=== PATIENT | male | born 1935 | race Caucasian/White ===

== ENCOUNTER → 2016-10-03 | Outpatient (CLI) | payer MEDICARE ==
[2016-03-07 10:10] VITALS: BP 111/58
[~2016-10-03] MED LIST: AMOXICILLIN 50500 MG PO; ASPIRIN E.C. 8181 MG PO; CARVEDILOL3.125 MG PO; CARVEDILOL6.25 MG PO; COMBIVENT RESPI1 SPR; COMBIVENT RESPI1 SPR IH; CORDARONE200 MG/TAB PO; CRESTOR 10MG10 MG PO; ELIQUIS2.5 MG PO; FISH OIL500 M1 PO; FLOMAX 0.40.4 MG/CAP PO; LISINOPRIL10 MG PO; PERCOCET 325 MG1 TA2 PO
== END ==
LOC: CARDREHAB 10:26
DX: I10 Essential (primary) hypertension (principal); R07.89 Other chest pain; I25.10 Atherosclerotic heart disease of native coronary artery without angina pectoris; F17.210 Nicotine dependence, cigarettes, uncomplicated; E78.5 Hyperlipidemia, unspecified; Z82.49 Family history of ischemic heart disease and other diseases of the circulatory system; R06.00 Dyspnea, unspecified
CPT/HCPCS: A9500

== ENCOUNTER → 2016-11-27 | Outpatient (CLI) | payer MEDICARE, BC ==
[2016-03-07 10:10] VITALS: BP 111/58
== END ==
LOC: RAD 09:53
DX: Z09 Encounter for follow-up examination after completed treatment for conditions other than malignant neoplasm (principal); R91.1 Solitary pulmonary nodule; J43.2 Centrilobular emphysema; K44.9 Diaphragmatic hernia without obstruction or gangrene
CPT/HCPCS: Q9967

== ENCOUNTER 2018-05-26 18:40 | Emergency (ER) | payer MEDICARE ==
[~2018-05-26] VITALS: Ht 182.9 cm; Wt 84.1 kg
[~2018-05-26 18:40] MED LIST changes: +FISH OIL 1000MG1 CAP PO; -FISH OIL500 M1 PO; -FLOMAX 0.40.4 MG/CAP PO; +FLOMAX0.4 MG PO; +GOOD SENSE ASPI81 M1 PO
[2018-05-26] MEDS ORDERED: COREG 3.123.125 MG/T PO (19:36)
[2018-05-26] MEDS ORDERED: AMIODARONE HCL100 MG PO (19:37)
[2018-05-26] MEDS ORDERED: CO Q-10200 MG PO (19:38)
[2018-05-26] MEDS ORDERED: BEVESPI AEROS10.7 GM IH (19:38)
[2018-05-26] MEDS ORDERED: SYNTHROID RP0.088 MG PO (19:39)
[2018-05-26] MEDS ORDERED: VITAMIN D31000 I1 PO (19:41)
[2018-05-26 19:47] LABS: PARTIAL THROMBOPLASTIN TIME 26.6 SECONDS (21.0-32.0); PROTHROMBIN TIME 11.7 SECONDS (9.0-12.0)
[2018-05-26 19:49] LABS: ALBUMIN 4.2 g/dL (3.5-5.0); CALCIUM 9.3 mg/dL (8.4-10.2); POTASSIUM 4.7 mmol/L (3.6-5.0); TOTAL BILIRUBIN 1.2 mg/dL (0.2-1.3); TOTAL PROTEIN 7.2 g/dL (6.3-8.2)
[2018-05-26 19:50] LABS: BASO # 0.1 (0.02-0.10); EOS # 0.5 (0.04-0.40); HEMATOCRIT 45.8 % (42.0-52.0); HEMOGLOBIN 15.6 g/dL (13.5-18.0); LYMPH# 1.2 (1.50-4.00); MEAN CELL VOLUME 98 fl (78-100); MEAN CORPUSCULAR HEMOGLOBIN 34 pg (27-31); MEAN CORPUSCULAR HGB CONC 34 g/dL (33-37); MEAN PLATELET VOLUME 10.4 fl (7.4-10.4); MONO # 0.7 (0.20-0.80); NEU # 3.8 (1.40-6.50); PLATELET COUNT 136 K/mm3 (130-400); RED BLOOD COUNT 4.66 M/mm3 (4.20-5.60); RED CELL DISTRIBUTION WIDTH 13.6 % (11.5-14.5); WHITE BLOOD COUNT 6.2 K/mm3 (4.8-10.8)
[2018-05-26 19:56] LABS: EOS % 7.3 % (0.0-4.0)
[2018-05-26 20:03] LABS: URINE APPEARANCE CLEAR; URINE COLOR YELLOW
[2018-05-26 20:04] LABS: PH-URINE 5.5 (5.0 - 8.0); URINE BILIRUBIN NEGATIVE (NEGATIVE); URINE BLOOD TRACE (NEGATIVE); URINE GLUCOSE NEGATIVE (NEGATIVE); URINE KETONE NEGATIVE (NEGATIVE); URINE LEUKOCYTE ESTERASE NEGATIVE (NEGATIVE); URINE NITRATE NEGATIVE (NEGATIVE); URINE PROTEIN(semi-quant) TRACE mg/dL (NEGATIVE); URINE UROBILINOGEN NORMAL (NORMAL); URINE WBC 0-1 /hpf (0-3)
[2018-05-26 21:17] VITALS: BP 168/85
== END 2018-05-26 21:17 | disposition home or self-care (01) ==
LOC: ED 18:40
PROVIDERS: Nurse Practitioner
DX: I10 Essential (primary) hypertension (principal); R25.1 Tremor, unspecified; R60.9 Edema, unspecified; Z99.81 Dependence on supplemental oxygen; Z87.891 Personal history of nicotine dependence; Z79.899 Other long term (current) drug therapy

== ENCOUNTER → 2018-08-25 | Outpatient (CLI) | payer MEDICARE ==
[~2018-08-25] MED LIST changes: +AMIODARONE HCL100 MG PO; +BEVESPI AEROS10.7 GM IH; +CO Q-10200 MG PO; +COREG 3.123.125 MG/T PO; +SYNTHROID RP0.088 MG PO; +VITAMIN D31000 I1 PO
== END ==
LOC: RAD 14:55 → LAB 15:01
PROVIDERS: Family Medicine
DX: K57.90 Diverticulosis of intestine, part unspecified, without perforation or abscess without bleeding (principal); N40.0 Benign prostatic hyperplasia without lower urinary tract symptoms; J44.9 Chronic obstructive pulmonary disease, unspecified; R10.9 Unspecified abdominal pain; Z87.891 Personal history of nicotine dependence; K44.9 Diaphragmatic hernia without obstruction or gangrene
CPT/HCPCS: Q9967

== ENCOUNTER → 2018-11-11 | Outpatient (CLI) | payer MEDICARE | LOC: RAD 09:48 | DX: I65.23 Occlusion and stenosis of bilateral carotid arteries (principal); G45.9 Transient cerebral ischemic attack, unspecified; H53.129 Transient visual loss, unspecified eye ==

== ENCOUNTER 2018-12-20 13:00 | Emergency (ER) | payer MEDICARE ==
[~2018-12-20] VITALS: Ht 182.9 cm; Wt 86.4 kg
[2018-12-20 13:49] LABS: BASO # 0.1 (0.02-0.10); EOS # 0.4 (0.04-0.40); HEMATOCRIT 44.2 % (42.0-52.0); HEMOGLOBIN 14.5 g/dL (13.5-18.0); LYMPH# 1.2 (1.50-4.00); MEAN CELL VOLUME 98 fl (78-100); MEAN CORPUSCULAR HEMOGLOBIN 32 pg (27-31); MEAN CORPUSCULAR HGB CONC 33 g/dL (33-37); MEAN PLATELET VOLUME 9.7 fl (7.4-10.4); NEU # 5.4 (1.40-6.50); PLATELET COUNT 162 K/mm3 (130-400); RED BLOOD COUNT 4.53 M/mm3 (4.20-5.60); RED CELL DISTRIBUTION WIDTH 14.3 % (11.5-14.5); WHITE BLOOD COUNT 8.1 K/mm3 (4.8-10.8)
[2018-12-20 13:50] LABS: EOS % 5.4 % (0.0-4.0)
[2018-12-20 13:58] LABS: ALBUMIN 3.7 g/dL (3.4-4.8)
[2018-12-20 13:59] LABS: POTASSIUM 4.2 mmol/L (3.5-5.1); SODIUM 138 mmol/L (136-145)
[2018-12-20 14:01] LABS: GLUCOSE 86 mg/dL (75-110); TOTAL PROTEIN 6.8 g/dL (6.2-8.1)
[2018-12-20 14:02] LABS: CARBON DIOXIDE 24 mmol/L (23-31)
[2018-12-20 14:06] LABS: AST-SGOT 14 U/L (5-34)
[2018-12-20 14:07] LABS: ALT/SGPT 14 U/L (0-55)
[2018-12-20 14:13] LABS: TROPONIN-I < 0.03 ng/mL (<0.030)
[2018-12-20 18:08] VITALS: BP 170/94
== END 2018-12-20 18:18 | disposition home or self-care (01) ==
LOC: ED 13:00
PROVIDERS: Nurse Practitioner Primary Care
DX: I16.0 Hypertensive urgency (principal); I48.91 Unspecified atrial fibrillation; J44.9 Chronic obstructive pulmonary disease, unspecified; I10 Essential (primary) hypertension; Z90.89 Acquired absence of other organs; Z99.81 Dependence on supplemental oxygen; Z79.01 Long term (current) use of anticoagulants; Z79.82 Long term (current) use of aspirin

== ENCOUNTER → 2018-12-24 | Outpatient (CLI) | payer MEDICARE ==
[2018-12-20 18:08] VITALS: BP 170/94
== END ==
LOC: CARDREHAB 07:53 → CARDLAB 14:01
DX: I25.10 Atherosclerotic heart disease of native coronary artery without angina pectoris (principal)
CPT/HCPCS: A9500

== ENCOUNTER 2019-01-02 16:58 | Emergency (ER) | payer MEDICARE ==
[~2019-01-02] VITALS: Ht 175.3 cm; Wt 81.8 kg
[~2019-01-02 16:58] MED LIST changes: +MACROBID 100 M100 MG PO
[2019-01-02 17:37] LABS: HEMATOCRIT 47.4 % (42.0-52.0); HEMOGLOBIN 15.3 g/dL (13.5-18.0); MEAN CELL VOLUME 100 fl (78-100); MEAN CORPUSCULAR HEMOGLOBIN 32 pg (27-31); MEAN CORPUSCULAR HGB CONC 32 g/dL (33-37); MEAN PLATELET VOLUME 9.9 fl (7.4-10.4); PLATELET COUNT 137 K/mm3 (130-400); RED BLOOD COUNT 4.75 M/mm3 (4.20-5.60); RED CELL DISTRIBUTION WIDTH 14.3 % (11.5-14.5)
[2019-01-02 17:43] LABS: LYMPHOCYTE 10 % (20-51); MONOCYTE 1 % (3-10); NEUTROPHILS 88 % (42-75)
[2019-01-02 17:46] LABS: ALBUMIN 3.9 g/dL (3.4-4.8)
[2019-01-02 17:47] LABS: POTASSIUM 4.5 mmol/L (3.5-5.1)
[2019-01-02 17:48] LABS: CALCIUM 9.4 mg/dL (8.3-10.5)
[2019-01-02 17:49] LABS: TOTAL PROTEIN 7.2 g/dL (6.2-8.1)
[2019-01-02 17:51] LABS: TOTAL BILIRUBIN 0.9 mg/dL (0.2-1.2)
[2019-01-02 20:14] LABS: URINE APPEARANCE CLEAR; URINE BILIRUBIN NEGATIVE (NEGATIVE); URINE COLOR YELLOW; URINE GLUCOSE NEGATIVE (NEGATIVE); URINE KETONE 1+ (NEGATIVE); URINE PROTEIN(semi-quant) TRACE mg/dL (NEGATIVE)
[2019-01-02 20:15] LABS: URINE BLOOD 50 ery/uL (NEGATIVE); URINE LEUKOCYTE ESTERASE NEGATIVE (NEGATIVE); URINE MUCUS PRESENT (NOT PRESENT); URINE NITRATE NEGATIVE (NEGATIVE); URINE UROBILINOGEN NORMAL (NORMAL)
[2019-01-02 20:40] VITALS: BP 118/61
== END 2019-01-02 20:40 | disposition home or self-care (01) ==
LOC: ED 16:58
PROVIDERS: Family Medicine
DX: N39.0 Urinary tract infection, site not specified (principal); I48.91 Unspecified atrial fibrillation; J44.9 Chronic obstructive pulmonary disease, unspecified; I10 Essential (primary) hypertension; Z79.01 Long term (current) use of anticoagulants; Z98.890 Other specified postprocedural states; Z79.82 Long term (current) use of aspirin

== ENCOUNTER 2024-02-12 14:06 | Inpatient (IN) | payer MEDICARE ==
[~2024-02-12] VITALS: Ht 182.9 cm; Wt 72.5 kg
[~2024-02-12 14:06] MED LIST changes: +CEFDINIR300 MG PO; +LEVOFLOXACIN250 MG PO; +PREDNISONE20 M1 PO
[2024-02-12 17:00] VITALS: BP 132/68
--- NOTE | 2024-02-12 17:30 | NUR ---
Pt arrives to [facility] via POV. Escorted to room via WC. Is alert, Ox4, denies pain. Apply telemetry, SR 70's. Lac to L frontal head, closed, no drainage. Pt reports pain with touch. Reports intermittent dizziness upon standing. Pt and son report this has been increasing in frequency and may be what led to recent falls. Placed on 2L O2 via NC. Reports this is his baseline and wears 3L at [facility] for sleep. Pt given general diet upon arrival. Eats 100%. Scattered bruising to include L ankle and sternum. Pt reports that he has not had BM x 1 week. Report from JOSHUA Jean at [facility] that pt had BM on 02/08. BS x 4, passing gas. Pt able to stand/ambulate with 1A/walker. States that he does not use assistive device at home. LLE midshin down to foot slight non-pitting edema with purple discoloration. Pt has cell phone, bilat hearing aids, upper/lower dentures and glasses at bedside. Pt oriented to room, call light and alarms. Pt sitting up in recliner, call light within reach, chair brake and alarm set.
[2024-02-12] MEDS ORDERED: Polyethylene Glycol 3350 Powder 17 GM PACKET PO PRN (18:00)
[2024-02-12] MEDS ORDERED: Docusate Sodium 100 MG CAP PO PRN (18:00)
[2024-02-12] MEDS ORDERED: Heparin 5,000 UNITS/ML 1 ML VIAL SQ SCH (18:00)
[2024-02-12] MEDS ORDERED: Bisacodyl 5 MG TAB PO PRN (18:00)
[2024-02-12] MEDS ORDERED: Acetaminophen 325 MG TAB PO PRN (18:00)
[2024-02-12 18:21] VITALS: BP 132/68
[2024-02-12] MEDS ORDERED: FUROSEMIDE40 MG PO (18:22)
[2024-02-12] MEDS ORDERED: LEVOTHYROXINE0.05 MG PO (18:24)
[2024-02-12] MEDS ORDERED: CLARITIN10 M1 PO (18:27)
[2024-02-12] MEDS ORDERED: NASONEX 24HR AL17 ML NS (18:28)
[2024-02-12] MEDS ORDERED: CALCIUM ANTACI500 MG PO (18:36)
[2024-02-12] MEDS ORDERED: KEPPRA 500MG500 MG PO (18:38)
[2024-02-12] MEDS ORDERED: [UNRECOGNIZED DRUG - OTHER] TP (18:40)
[2024-02-12] MEDS ORDERED: MECLIZINE PO (18:41)
[2024-02-12] MEDS ORDERED: ROXICODONE 55 MG/TAB PO (18:43)
[2024-02-12] MEDS ORDERED: POLYETHYLE17 GM/Dose PO (18:44)
[2024-02-12] MEDS ORDERED: SENNA DOCUSATE1 TAB PO (18:45)
[2024-02-12] MEDS ORDERED: PROTONIX TR40 M1 PO (18:45)
[2024-02-12] MEDS ORDERED: Meclizine 12.5 MG TAB PO PRN (19:00)
[2024-02-12] MEDS ORDERED: oxyCODONE 5 MG TAB PO PRN (19:00)
[2024-02-12] MEDS ORDERED: Calcium Carbonate Chewable 500 MG TAB PO PRN (19:00)
[2024-02-12] MEDS ORDERED: Albuterol 90 MCG/PUFF MDI IH PRN (19:15)
[2024-02-12 20:41] LABS: BASO # 0.03 K/mm3 (0.02-0.10); EOS # 0.18 K/mm3 (0.04-0.40); EOS % 2.8 % (0.0-4.0); HEMATOCRIT 25.6 % (42.0-52.0); HEMOGLOBIN 8.2 g/dL (13.5-18.0); LYMPH# 0.99 K/mm3 (1.50-4.00); MEAN CELL VOLUME 96 fl (78-100); MEAN CORPUSCULAR HEMOGLOBIN 31 pg (27-31); MEAN CORPUSCULAR HGB CONC 32 g/dL (33-37); MEAN PLATELET VOLUME 8.7 fl (7.4-10.4); MONO # 0.48 K/mm3 (0.20-0.80); NEU # 4.79 K/mm3 (1.40-6.50); PLATELET COUNT 155 K/mm3 (130-400); RED BLOOD COUNT 2.68 M/mm3 (4.20-5.60); RED CELL DISTRIBUTION WIDTH 17.9 % (11.5-14.5); WHITE BLOOD COUNT 6.5 K/mm3 (4.8-10.8)
[2024-02-12 20:51] LABS: CALCIUM 8.4 mg/dL (8.3-10.5)
[2024-02-12 20:52] LABS: TOTAL PROTEIN 2.5 g/dL (6.2-8.1)
[2024-02-12] MEDS ORDERED: Sennosides/Docusate 8.6-50 MG TAB PO SCH (21:00)
[2024-02-12] MEDS ORDERED: Formoterol Neb Soln 20 MCG/2 ML UD IH SCH (21:00)
[2024-02-12] MEDS ORDERED: levETIRAcetam 500 MG TAB PO SCH (21:00)
[2024-02-12 21:10] LABS: ALBUMIN 3.1 g/dL (3.4-4.8)
[2024-02-12 21:15] LABS: TOTAL BILIRUBIN 0.7 mg/dL (0.2-1.2)
--- NOTE | 2024-02-12 22:04 | NUR ---
Upon entering room, pt lying in bed, watching tv. Reports that he attempted to roll onto his side earlier and became dizzy. Educate that dizziness may be new normal. Educate about meclizine, pt willing to try it. Pt denies need for bx tx, refuses at this time. Swallows pills whole, 1 at a time, without issue. SPORTS THERAPIST assists pt with HS oral hygiene, brushes dentures and place in cup. Pt denies any further needs. O2 at 2L via NC. Bed low/locked, bed alarm on, call light in reach.
--- NOTE | 2024-02-12 23:00 | NUR ---
Report received from Sharon LEWIS. Patient rests supine in bed. Oxygen in place at 2L/NC. Snoring. No signs of pain/distress. Bed alarm on. Call light in reach.
[2024-02-12 23:33] LABS: PH-URINE 5.5 (5.0 - 8.0); URINE APPEARANCE CLEAR (CLEAR); URINE BILIRUBIN NEGATIVE (NEGATIVE); URINE COLOR YELLOW (YELLOW); URINE GLUCOSE NEGATIVE (NEGATIVE); URINE KETONE TRACE (NEGATIVE); URINE PROTEIN(semi-quant) NEGATIVE (NEGATIVE)
[2024-02-12 23:34] LABS: URINE BLOOD NEGATIVE (NEGATIVE); URINE LEUKOCYTE ESTERASE NEGATIVE (NEGATIVE); URINE NITRATE NEGATIVE (NEGATIVE); URINE WBC 0-1 /hpf (0-3)
[2024-02-13 05:37] VITALS: BP 121/55
--- NOTE | 2024-02-13 07:19 | NUR ---
Report to Padmaja LEWIS.
--- NOTE | 2024-02-13 07:31 | NUR ---
Report received from Pennie Jessica, JONO and care assumed. Pt resting in bed with eyes closed and oxygen in place. No signs of distress or discomfort noted at this time. Call light in reach, bed alarm on.
[2024-02-13 07:36] LABS: HEMOGLOBIN 7.5 g/dL (13.5-18.0); MEAN PLATELET VOLUME 8.6 fl (7.4-10.4); RED BLOOD COUNT 2.44 M/mm3 (4.20-5.60); RED CELL DISTRIBUTION WIDTH 17.9 % (11.5-14.5); WHITE BLOOD COUNT 5.4 K/mm3 (4.8-10.8)
[2024-02-13] MEDS ORDERED: Fluticasone Nasal 50 MCG/Spray 16 GM BOTTLE NS SCH (09:00)
[2024-02-13] MEDS ORDERED: Loratadine 10 MG TAB PO SCH (09:00)
[2024-02-13] MEDS ORDERED: Tiotropium 2.5 MCG Respimat MDI IH SCH (09:00)
[2024-02-13] MEDS ORDERED: Omega-3 Fatty Acid Esters 1,000 MG CAP PO SCH (09:00)
[2024-02-13] MEDS ORDERED: Polyethylene Glycol 3350 Powder 17 GM PACKET PO SCH (09:00)
[2024-02-13] MEDS ORDERED: Furosemide 40 MG TAB PO SCH (09:00)
[2024-02-13] MEDS ORDERED: Lidocaine 4% Topical Patch TP SCH (09:00)
--- NOTE | 2024-02-13 10:45 | NUR ---
Pt resting in chair, denies pain. Pt alert and oriented x3, conversation appropirate. Pt educated on medications ordered, and verablizes understanding. No further needs or concerns at this time.
--- NOTE | 2024-02-13 14:09 | NUR ---
Assisted pt to bathroom. Pt had a medium BM. Stool color is dark brown-black colored. Pt assisted back to bed, call light in reach, bed alarm on.
[2024-02-13 17:14] VITALS: BP 108/56
--- NOTE | 2024-02-13 17:35 | NUR ---
Pt states intermittent dizziness when getting up from sitting or supine to standing. Pt requests to eat supper while in bed this evening BP checked and pulse in the 70s.
[2024-02-13 17:37] VITALS: BP 140/69
--- NOTE | 2024-02-13 17:41 | NUR ---
Per telemetry, pt has been in and out of a-fib throughout the day, and this nurse asked pt if he gets dizzy when not in the hospital. Pt states that he doesn't get dizzy usually. Continuing to monitor pt.
[2024-02-13 19:10] LABS: HEMATOCRIT 24.1 % (42.0-52.0); HEMOGLOBIN 7.9 g/dL (13.5-18.0)
--- NOTE | 2024-02-13 19:35 | NUR ---
Report given and care transferred. Dr. Dorman notified of pt's dizziness.
[2024-02-14 06:27] VITALS: BP 110/71
[2024-02-14 09:02] LABS: HEMATOCRIT 25.9 % (42.0-52.0); HEMOGLOBIN 8.4 g/dL (13.5-18.0); MEAN PLATELET VOLUME 8.8 fl (7.4-10.4); RED BLOOD COUNT 2.71 M/mm3 (4.20-5.60); RED CELL DISTRIBUTION WIDTH 17.6 % (11.5-14.5); WHITE BLOOD COUNT 5.6 K/mm3 (4.8-10.8)
--- NOTE | 2024-02-14 09:34 | NUR ---
PT IS SITTING IN HIS RECLINER EATING BREAKFAST. RN ADMINISTERED MEDICATIONS. PT IS ON 2 LPM VIA NC. PTS HGB IS 8.4 NO CHANGE SINCE YESTERDAY. PT DENIES PAIN, OR DISCOMFORT.
[2024-02-14 17:04] VITALS: BP 124/55
--- NOTE | 2024-02-14 20:20 | NUR ---
Report received from Debi LEWIS. Patient resting supine in bed watching TV. Family just left for the night. A/O x4. [place] with hearing aides. Denies pain. States does get SOA with sudden movements and still having dizziness. Lungs CTA. TELE in place. NSR rate 60's. Assessment completed. Voiding clear yellow urine in urinal at bedside. HS medications taken whole without difficulty. Denies wants or needs. Bed alarm on. Call light in reach.
--- NOTE | 2024-02-15 05:09 | NUR ---
Awakened for AM medications, and vitals. Resting well. Denies pain. Heparin injection and po medications taken without difficulty.
[2024-02-15 05:33] VITALS: BP 107/62
--- NOTE | 2024-02-15 06:59 | NUR ---
Report to Wave RN
[2024-02-15 09:19] LABS: HEMATOCRIT 25.2 % (42.0-52.0); HEMOGLOBIN 8.1 g/dL (13.5-18.0); MEAN PLATELET VOLUME 9.2 fl (7.4-10.4); RED BLOOD COUNT 2.61 M/mm3 (4.20-5.60); RED CELL DISTRIBUTION WIDTH 17.5 % (11.5-14.5); WHITE BLOOD COUNT 5.8 K/mm3 (4.8-10.8)
--- NOTE | 2024-02-15 09:30 | NUR ---
THIS NURSE ADMINISTERED MEDICATION. PT REPORTED DIZZINESS. RN ADMINISTERED ANTIVERT. PT IS SITTING UP IN THE RECLINER. CALLLIGHT WITHIN REACH, PT DENIES ANY FURTHER NEEDS.
[2024-02-15 17:26] VITALS: BP 127/56
[2024-02-16 05:38] VITALS: BP 100/51
--- NOTE | 2024-02-16 09:58 | NUR ---
SPEECH THERAPY AT BEDSIDE WITH PT AT THIS TIME. CHANGED THE BATTERY ON PTS TELEMOMITOR.
[2024-02-16 17:12] VITALS: BP 108/58
--- NOTE | 2024-02-16 17:56 | NUR ---
URINATED 275 MLS IN URINAL. STRAW COLORED URINE.
--- NOTE | 2024-02-16 21:17 | NUR ---
pt alert and oriented x4, pt now resting in bed watching tv. pt denies any pain at this time. pt assessed and medications delivered without complications pt denies any furhter neeeds. pt now resting in bed with call light in reach.
[2024-02-17 05:40] VITALS: BP 100/51
[2024-02-17 06:16] LABS: BASO # 0.04 K/mm3 (0.02-0.10); EOS % 7.4 % (0.0-4.0); HEMATOCRIT 23.4 % (42.0-52.0); HEMOGLOBIN 7.4 g/dL (13.5-18.0); LYMPH# 1.25 K/mm3 (1.50-4.00); MEAN CELL VOLUME 97 fl (78-100); MEAN CORPUSCULAR HEMOGLOBIN 31 pg (27-31); MEAN CORPUSCULAR HGB CONC 32 g/dL (33-37); MEAN PLATELET VOLUME 8.8 fl (7.4-10.4); MONO # 0.57 K/mm3 (0.20-0.80); NEU # 3.11 K/mm3 (1.40-6.50); PLATELET COUNT 157 K/mm3 (130-400); RED BLOOD COUNT 2.42 M/mm3 (4.20-5.60); RED CELL DISTRIBUTION WIDTH 16.9 % (11.5-14.5); WHITE BLOOD COUNT 5.4 K/mm3 (4.8-10.8)
[2024-02-17 17:19] VITALS: BP 108/62
--- NOTE | 2024-02-17 18:54 | NUR ---
Shift summary: Pt Ox4, VSS, denies pain. Reports intermittent dizziness with orthostatic changes, subsides quickly. Hgb 7.4g/dL, provider aware. Pt applied own compression socks, knee high. Pt had lg loose dark brown stool. No kamilla blood noted.
--- NOTE | 2024-02-17 19:23 | NUR ---
report recieved fromsanna martin rn
--- NOTE | 2024-02-17 20:35 | NUR ---
pt alert and oriented x4, pt assisted to bed by bruce miller and this nurse to bed . pt denies any pain at this time, pt had many family members at bedside during shift exchange. pt now resting in bed, assessment performed. pt denies any furhter needs a this time.
[2024-02-18 05:00] VITALS: BP 91/50
[2024-02-18 06:36] LABS: HEMATOCRIT 24.1 % (42.0-52.0); HEMOGLOBIN 7.6 g/dL (13.5-18.0)
--- NOTE | 2024-02-18 06:54 | NUR ---
report to adolfo miller
--- NOTE | 2024-02-18 08:15 | NUR ---
PT UP IN CHAIR EATING BREAKFAST. PATCH APPLIED TO RIGHT UPPER ARM. 2L VIA NC. ASSESMENT COMPLETE. MEDICATION TAKEN PO WITHOUT DIFFICULTY. NO OTHER WANTS/NEEDS AT THIS TIME. CALL LIGHT WITHIN REACH, CHAIR ALARM ON.
[2024-02-18 17:55] VITALS: BP 105/62
--- NOTE | 2024-02-18 18:53 | NUR ---
report received from adolfo miller
--- NOTE | 2024-02-18 21:03 | NUR ---
PT ALERT AND ORIENTED X4, PT RESTING IN BED AT THIS TIME AND REPORTS NO PAIN. PT ASSESSED AND MEDICATIONS DELIVERED WITHOUT COMPLICATION. PT AGREEABLE TO BREATHING TREATMENT. PT NOW RESTING IN BED WITH CALL LIGHT IN REACH. PT DENIES ANY FURTHER NEEDS AT THIS TIME
[2024-02-19 06:00] VITALS: BP 103/61
[2024-02-19 09:14] LABS: HEMATOCRIT 26.6 % (42.0-52.0); HEMOGLOBIN 8.3 g/dL (13.5-18.0)
--- NOTE | 2024-02-19 09:30 | NUR ---
Pt sitting up in recliner, dressed for the day. Reports pain to R shoulder, requests lidocaine patch be placed there. Declines bx tx, lungs CTA. Reports soft to loose stools, declines miralax. Reports that stools have been marsh to brown, no longer dark or black. This AM Hgb 8.3. Pt reports he still has intermittent dizziness, especially when rising from a lying down position. States that he waits until dizziness subsides then continues movement. Pt denies any further needs at this time. Chair locked, alarm set, call light in reach.
--- NOTE | 2024-02-19 17:30 | NUR ---
Report received from Sharon LEWIS. Patient resting in room, eating supper. Oxygen in place at 2L/NC. Denies wants or needs at this time.
[2024-02-19 17:43] VITALS: BP 94/55
--- NOTE | 2024-02-19 20:45 | NUR ---
Family here visiting. Watching FB game on phone. Denies wants or needs at this time.
--- NOTE | 2024-02-19 21:37 | NUR ---
Family gone. Assessment completed. HS medications and nebulizer tx taken. To BR with SBA and walker. Had medium, brown loose stool. Oral cares completed and assisted SBA back to bed. Denies pain at this time. Bed alarm on. Call light in reach.
--- NOTE | 2024-02-20 05:37 | NUR ---
Rested well all night with oxygen in place at 2L/NC. AM medication taken PO. Denies wants or needs. Using urinal in bed. Bed alarm on. Call light in reach.
[2024-02-20 06:04] VITALS: BP 120/69
--- NOTE | 2024-02-20 06:43 | NUR ---
Report to Olu LEWIS.
--- NOTE | 2024-02-20 08:00 | NUR ---
PT ALERT AND ORIENTATED AND UP IN CHAIR FOR BREAKFAST. STATED THAT HE DIDNT HAVE ANY PAIN THIS MORNING AND THAT HE SLEPT GOOD. 2L O2 VIA NC GOING. MEDICATION TAKEN PO. ASSESMENT COMPLETE. LIDOCAINE PATCH APPLIED TO RIGHT SHOULDER. NO OTHER WANTS OR NEEDS AT THIS TIME. CALL LIGHT WITHIN REACH, CHAIR ALARM ON.
[2024-02-20 12:04] LABS: HEMATOCRIT 28.5 % (42.0-52.0); HEMOGLOBIN 8.9 g/dL (13.5-18.0)
[2024-02-20 16:30] VITALS: BP 121/51
--- NOTE | 2024-02-20 19:17 | NUR ---
Report received from Olu LEWIS. Patient rests supine in bed watching TV. A/O x4. Denies pain. Oxygen in place at 2L/NC. Assessment completed. TELE in place. HR 60's. Bed alarm on. Call light in reach.
--- NOTE | 2024-02-21 05:38 | NUR ---
Rested well through the night with no complaints. HR patrick in 50's while sleeping. AM medications taken po without difficulty. Bed alarm on, call light in reach.
[2024-02-21 05:45] VITALS: BP 113/47
--- NOTE | 2024-02-21 06:48 | NUR ---
Report to Carmen LEWIS
[2024-02-21 08:49] LABS: HEMATOCRIT 26.5 % (42.0-52.0); HEMOGLOBIN 8.2 g/dL (13.5-18.0)
--- NOTE | 2024-02-21 09:59 | NUR ---
PT SITTING UP IN CHAIR, ALERT AND ORIENTED. DENIES PAIN. DOES REPORT SOME DIZZINESS UPON GETTING UP FROM BED, BUT REPORTS THIS IS IMPROVED FROM PREVIOUS. CONTINUES TO HAVE LOOSE BROWN STOOLS, MIRALAX HELD. AMBULATED IN HALLS WITH STANDBY ASSISTANCE. WAS ABLE TO WALK LAP AROUND INSIDE OF HOSPITAL. DENIES SHORTNESS OF BREATH. CONTINUES ON 2L OXYGEN.
[2024-02-21 17:41] VITALS: BP 92/48
--- NOTE | 2024-02-21 18:57 | NUR ---
REPORT GIVEN TO JOSHUA MATOS.
--- NOTE | 2024-02-21 21:00 | NUR ---
Patient resting in bed awake. Denies pain. HS meds reviewed and given. RT treatment given. O2 on 2lpnc.
[2024-02-22 05:34] VITALS: BP 116/58
[2024-02-22 17:07] VITALS: BP 107/57
--- NOTE | 2024-02-22 18:27 | NUR ---
PATIENT HAS BEEN PLEASENT AND COOPERATIVE WITH CARES. HE HAS MILD PAIN IN HIS RIGHT SHOULDER. LIDOCAINE PATCHN WAS APPLIED. PATIENT DENIED PAIN WHEN ASKED THROUGHT THE DAY. HE CONTINUES ON O2 @2LPM VIA NASAL CANNULA. HE HAS WORKED WELL WITH THERAPY. HIS FAMILY IS WANTING HIM TO BE DISCHARGED 02/24/24 BY 1100. HE IS CURRENTLY PLAYING CARES WITH FAMILY IN HIS ROOM AT THIS TIME. STAFF WILL CONT TO MONITOR.
--- NOTE | 2024-02-22 20:33 | NUR ---
PT SITTING IN REACLINER WATCHING TV. PT DENIES PAIN WHEN ASKED. NURSING ASSESSMENT PREFORMED WITH NO ABNORAML FINDING. PT IS ALSERT AND ABLE TO ANSWEWR ALL QUESTIONS APPROPRIEATLY. PT ALERT AND ORIENTED.
[2024-02-23 05:41] VITALS: BP 111/58
--- NOTE | 2024-02-23 06:53 | NUR ---
REPORTS GIVEN TO WALT LEWIS
--- NOTE | 2024-02-23 12:53 | NUR ---
APPOINTMENTS FOR FOLLOW UP ARE IN DISCHARGE REFERRALS SECTION. LOCATION FOR CT HEAD WITHOUT HAS CHANGED TO LOCATION OF [address] SAME THE FOLLOW UP PROVIDER SHELTON RICCI.
--- NOTE | 2024-02-23 15:44 | NUR ---
PATIENT IS ALERT AND ORIENTED X4. HE HAS BEEN PLEASENT AND COOPERATIVE WITH STAFF. HE HAS EATEN MOST TO ALL OF HIS MEALS, WORKED WELL WITH THERAPY AND HAS SPENT THE OTHER PORTION OF THE DAY VISITING WITH FAMILY. PATIENT IS PLANNING ON LEAVING TOMORROW WITH FAMILY. HE IS CURRENTLY SITTING IN ROOM WITH VISITORS. HE HAS DENIED PAIN THROUGHT THE DAY. HE HAS A LIDOCAINE PATCH TO THE RIGHT SHOULDER.
[2024-02-23 17:58] VITALS: BP 126/54
--- NOTE | 2024-02-23 18:55 | NUR ---
report received from gunjan miller
--- NOTE | 2024-02-23 19:47 | NUR ---
pt alert and oriented x4, pt resting in chair and is excited for discharge tomorrow morning. pt assessed without complication, pt denies any pain at this time. pt resting in chair with call light in reach, pt denies any further needs.
[2024-02-24 05:44] LABS: BASO # 0.05 K/mm3 (0.02-0.10); EOS # 0.43 K/mm3 (0.04-0.40); EOS % 8.1 % (0.0-4.0); HEMATOCRIT 23.9 % (42.0-52.0); HEMOGLOBIN 7.3 g/dL (13.5-18.0); MEAN CELL VOLUME 96 fl (78-100); MEAN CORPUSCULAR HEMOGLOBIN 29 pg (27-31); MEAN CORPUSCULAR HGB CONC 31 g/dL (33-37); MEAN PLATELET VOLUME 9.2 fl (7.4-10.4); PLATELET COUNT 175 K/mm3 (130-400); RED BLOOD COUNT 2.49 M/mm3 (4.20-5.60); RED CELL DISTRIBUTION WIDTH 16.7 % (11.5-14.5); WHITE BLOOD COUNT 5.3 K/mm3 (4.8-10.8)
[2024-02-24 05:53] LABS: ALBUMIN 3.2 g/dL (3.4-4.8)
[2024-02-24 05:54] LABS: CALCIUM 8.6 mg/dL (8.3-10.5)
[2024-02-24 05:55] LABS: TOTAL PROTEIN 5.4 g/dL (6.2-8.1)
[2024-02-24 05:57] LABS: TOTAL BILIRUBIN 0.5 mg/dL (0.2-1.2)
[2024-02-24 06:31] VITALS: BP 131/56
--- NOTE | 2024-02-24 07:19 | NUR ---
report to roshni miller
--- NOTE | 2024-02-24 09:04 | NUR ---
PT SITTING UP IN CHAIR. NO DISTRESS NOTED. PILLS TAKEN WITHOUT DIFFICULTY. PT DENIES ANY PAIN CURRENTLY. CALL LIGHT WITHIN REACH. PT NOTIFIED THAT MEGAN FISHER WILL COME AND SPEAK WITH HIM FOLLOWING SWING BED MEETING.
--- NOTE | 2024-02-24 11:30 | NUR ---
PHILLIP REPORTS THAT THE PATIENT WILL STAY OVERNIGHT AND WILL RECHECK LABS AND SEE HOW THEY COMPARE TO TODAY. STOOL SAMPLE TAKEN TO LAB PER REQUEST FOR ADDITIONAL TESTING. PT A/OX4. CALL LIGHT WITHIN REACH.
--- NOTE | 2024-02-24 14:48 | NUR ---
HGB dropping. Occult blood positive. Dirrhea starting back. No discharge planned today. [facility] notified. Family at bedside and agrees to monitor labs. Insurance Thien Cosme with [employer] notified via secure message of the change in plans.
--- NOTE | 2024-02-24 17:31 | NUR ---
PT SITTING UP IN BED EARTING ICE CREAM WHEN THIS RN WALKS IN. TAKES MED WITHOUT DIFFICULTY. DENIES ANY PAIN CURRENTLY. PT WATCHING TV, CALL LIGHT WITHIN REACH. DENIES ANY OTHER NEEDS AT THIS TIME.
[2024-02-24 17:50] VITALS: BP 132/67
--- NOTE | 2024-02-24 19:12 | NUR ---
REPORT TO JOSHUA WAY
[2024-02-24 19:42] LABS: HEMATOCRIT 26.6 % (42.0-52.0); HEMOGLOBIN 8.3 g/dL (13.5-18.0)
--- NOTE | 2024-02-24 22:57 | NUR ---
pt alert and oriented x4, pt resting in bed asleep when this nurse entered room. pt denies any pain at this time, pt assessed and medications delivered without complication. pt denies any further needs at this time. pt now resting in bed with call light in reach and bed alarm on
[2024-02-25 05:55] LABS: BASO # 0.04 K/mm3 (0.02-0.10); EOS # 0.46 K/mm3 (0.04-0.40); EOS % 8.7 % (0.0-4.0); HEMATOCRIT 24.7 % (42.0-52.0); HEMOGLOBIN 7.7 g/dL (13.5-18.0); LYMPH# 0.97 K/mm3 (1.50-4.00); MEAN CELL VOLUME 93 fl (78-100); MEAN CORPUSCULAR HEMOGLOBIN 29 pg (27-31); MEAN CORPUSCULAR HGB CONC 31 g/dL (33-37); MEAN PLATELET VOLUME 9.1 fl (7.4-10.4); MONO # 0.52 K/mm3 (0.20-0.80); PLATELET COUNT 183 K/mm3 (130-400); RED BLOOD COUNT 2.65 M/mm3 (4.20-5.60); RED CELL DISTRIBUTION WIDTH 16.3 % (11.5-14.5); WHITE BLOOD COUNT 5.3 K/mm3 (4.8-10.8)
[2024-02-25 06:04] VITALS: BP 113/61
[2024-02-25] MEDS ORDERED: PROTONIX TR40 M1 PO (09:47)
--- NOTE | 2024-02-25 11:59 | NUR ---
Prescription for Protonix called in per Morgan álvarez request to [facility].
== END 2024-02-25 11:20 | disposition home health service (06) | DRG 949 ==
LOC: MED/SURG 14:06
PROVIDERS: Family Medicine; ADMIT Family Medicine
DX: S06.5X9D Traumatic subdural hemorrhage with loss of consciousness of unspecified duration, subsequent encounter (principal); D62 Acute posthemorrhagic anemia; J96.11 Chronic respiratory failure with hypoxia; R53.81 Other malaise; N18.30 Chronic kidney disease, stage 3 unspecified; I12.9 Hypertensive chronic kidney disease with stage 1 through stage 4 chronic kidney disease, or unspecified chronic kidney disease; I48.0 Paroxysmal atrial fibrillation; J44.9 Chronic obstructive pulmonary disease, unspecified; Z66 Do not resuscitate; E03.9 Hypothyroidism, unspecified; N40.0 Benign prostatic hyperplasia without lower urinary tract symptoms; E78.5 Hyperlipidemia, unspecified; W19.XXXD Unspecified fall, subsequent encounter; Z79.01 Long term (current) use of anticoagulants; Z79.82 Long term (current) use of aspirin; Z79.890 Hormone replacement therapy; Z87.891 Personal history of nicotine dependence
CPT/HCPCS: A9270; J1644